=== PATIENT | female | born 1975 | race Caucasian/White ===

== ENCOUNTER 2017-02-01 14:06 | Emergency (ER) | payer BC, OTHER ==
[~2017-02-01] VITALS: Ht 152.4 cm; Wt 66.8 kg
[2017-02-01 14:21] VITALS: BP 112/71
--- NOTE | 2017-02-01 14:34 | NUR ---
Patient being evaluated by DR CHOUDHURY at bedside.
--- NOTE | 2017-02-01 14:45 | NUR ---
41 F BIB SELF WITH C/O 9/10 "SHARP" CONSTANT RLQ ABD PAIN X 1 MONTH WITH NAUSEA; PT DENIES ANY RECENT FEVERS, N/V/D, OR URINARY COMPLAINTS; SKIN IS PINK/WARM/DRY; AOX4 WITH EVEN AND STEADY GAIT; RR ARE EVEN AND UNLABORED; VSS; PATIENT POSITIONED FOR COMFORT; HOB ELEVATED; BED DOWN. ALL NEEDS MET AT THIS TIME; WILL CONTINUE TO MONITOR.
[2017-02-01 14:54] LABS: BASOPHILS # (AUTO) 0.2 K/uL (0.00-0.22); BASOPHILS % (AUTO) 2.4 % (0.0-2.0); EOSINOPHILS # (AUTO) 0.1 K/uL (0-0.4); EOSINOPHILS % (AUTO) 0.8 % (0.0-4.0); HEMATOCRIT 38.9 % (36-48); HEMOGLOBIN 12.9 g/dL (12.0-16.0); LYMPHOCYTES # (AUTO) 2.8 K/uL (2.5-16.5); LYMPHOCYTES % (AUTO) 26.9 % (20.5-51.1); MEAN CORPUSCULAR HEMOGLOBIN 29 pg (27-31); MEAN CORPUSCULAR HGB CONC 33 g/dL (33-37); MEAN CORPUSCULAR VOLUME 87 fL (80-94); MONOCYTES # (AUTO) 0.8 K/uL (0.8-1.0); MONOCYTES % (AUTO) 7.6 % (1.7-9.3); NEUTROPHILS # (AUTO) 6.4 K/uL (1.8-7.7); NEUTROPHILS % (AUTO) 62.3 % (42.2-75.2); PLATELET COUNT (AUTO) 252 K/uL (140-450); RED BLOOD CELL COUNT(AUTO) 4.47 MIL/uL (4.20-5.40); RED CELL DISTRIBUTION WIDTH 12.9 % (11.6-13.7); WHITE BLOOD COUNT (AUTO) 10.3 K/uL (4.8-10.8)
[2017-02-01 15:03] LABS: APPEARANCE,URINE CLEAR (CLEAR); BILIRUBIN,URINE NEGATIVE (NEGATIVE); BLOOD, URINE NEGATIVE (NEGATIVE); COLOR,URINE YELLOW (YELLOW); LEUKOCYTE ESTERASE ,URINE NEGATIVE (NEGATIVE); NITRITE, URINE NEGATIVE (NEGATIVE); UGLUCOSE NEGATIVE (NEGATIVE)
[2017-02-01 15:06] LABS: ANION GAP 13.1 (8-16); CARBON DIOXIDE 24.9 mmol/L (21-32)
[2017-02-01 15:12] LABS: TOTAL BILIRUBIN 0.2 mg/dL (0.0-1.0)
[2017-02-01] MEDS ORDERED: KETOROLAC 30 MG/ML VIAL IVP ONE (15:35)
[2017-02-01 16:01] VITALS: BP 138/83
--- NOTE | 2017-02-01 16:01 | NUR ---
Patient discharged with v/s stable. Written and verbal after care instructions given and explained. Patient alert, oriented and verbalized understanding of instructions. Ambulatory with steady gait. All questions addressed prior to discharge. ID band removed. Patient advised to follow up with PMD. Rx of Motrin and Irons #5 given. Patient educated on indication of medication including possible reaction and side effects. Opportunity to ask questions provided and answered.
== END 2017-02-01 16:01 | disposition home or self-care (01) ==
LOC: MED 14:06
DX: N83.291 Other ovarian cyst, right side (principal); Z90.49 Acquired absence of other specified parts of digestive tract; Z90.710 Acquired absence of both cervix and uterus; Z88.8 Allergy status to other drugs, medicaments and biological substances
CPT/HCPCS: 36415; 74176; 80053; 81003; 83690; 85025; 96374; 99285; J1885